=== PATIENT | female | born 1950 | race Caucasian/White ===

== ENCOUNTER → 2016-11-20 | Outpatient (CLI) | payer MEDICARE, OTHER ==
--- NOTE | 2016-11-21 08:16 | XR ---
Right shoulder HISTORY: Right shoulder pain 3 views of the right shoulder No comparisons There is right acromioclavicular joint arthropathy. Bone mineralization mildly reduced, joint spaces and alignment are maintained. Right lung apex as visualized is normal. IMPRESSION: Acromioclavicular joint arthropathy.
== END | disposition home or self-care (01) ==
LOC: RADXRYALE 16:47
PROVIDERS: ATTEND Family Medicine
DX: M12.811 Other specific arthropathies, not elsewhere classified, right shoulder (principal)

== ENCOUNTER → 2017-05-18 | Outpatient (CLI) | payer MEDICARE, OTHER ==
--- NOTE | 2017-05-19 07:31 | MM ---
Reason for exam: screening (asymptomatic). Last mammogram was performed 1 year and 8 months ago. History: Patient is postmenopausal and has history of endometrial cancer at age 29. Family history of breast cancer in mother at age 70. Benign right mammotome panel of the right breast, April 26, 2010. Took hormonal contraceptives for 4 years. Physical Findings: A clinical breast exam by your physician is recommended on an annual basis and results should be correlated with mammographic findings. MG Screening Mammo w CAD Bilateral CC and MLO view(s) were taken. Prior study comparison: October 02, 2015, bilateral MG screening mammo w CAD. November 11, 2012, bilateral digital screening mammo w/CAD. There are scattered fibroglandular densities. Finding: There are few typically benign round, diffuse/scattered calcifications in both breasts. Previous mammotome biopsy in the right breast. There is a chronic nodularity in the right axilla. There is no discrete abnormality. ASSESSMENT: Benign, BI-RAD 2 RECOMMENDATION: Routine screening mammogram of both breasts in 1 year.
== END | disposition home or self-care (01) ==
LOC: RADMAMWWP 10:35
PROVIDERS: ATTEND Family Medicine
DX: Z12.31 Encounter for screening mammogram for malignant neoplasm of breast (principal)

== ENCOUNTER → 2017-06-09 | Outpatient (CLI) | payer MEDICARE, OTHER ==
--- NOTE | 2017-06-09 15:23 | XR ---
Right elbow HISTORY: Trauma and pain 3 views of the right elbow correlated to right forearm 2 diffuse are similar projection There is a pathologic joint effusion present. Alignment and bone mineralization are maintained. Joint spaces are normal. No fracture or dislocation is evident. IMPRESSION: Joint effusion may be indicative of occult fracture, alternate imaging may be of increase d sensitivity, follow-up as indicated.
--- NOTE | 2017-06-09 15:27 | XR ---
Right forearm HISTORY: Trauma and pain 2 views of the right forearm correlated to the elbow same date Bone mineralization, joint spaces and alignment are maintained. Elbow joint effusion suspected. IMPRESSION: No acute fracture or dislocation is evident. Joint effusion in the elbow may be indicativ e of occult fracture, follow-up as indicated.
== END | disposition home or self-care (01) ==
LOC: RADXRYALE 13:42
PROVIDERS: ATTEND Physician Assistant Medical
DX: M25.421 Effusion, right elbow (principal); M79.631 Pain in right forearm

== ENCOUNTER 2018-01-12 08:42 | Day surgery (SDC) | payer MEDICARE, OTHER ==
[2018-01-07 14:45] VITALS: BMI 28.7
[~2018-01-12 08:42] MED LIST: LACTATED RINGERS 1,000 ML IV SCH
[2018-01-12] MEDS: CYCLOPENTOLATE 1% OPHTH SOLN 2 ML BTL OP ONE ×3 (09:45→10:03)
[2018-01-12] MEDS: FLURBIPROFEN 0.03% OPHTH DROPS 2.5 ML BTL OP ONE ×3 (09:48→10:06)
[2018-01-12] MEDS: PHENYLEPHRINE 10% OPHTH DROPS 5 ML BTL OP ONE ×3 (09:51→10:08)
[2018-01-12 10:02] VITALS: RESP 16; TEMP 98.9
[2018-01-12 10:06] LABS: Glucose,Whole Blood 97 mg/dL (75-99)
[2018-01-12] MEDS ORDERED: PROPOFOL 10 MG/ML 20 ML VIAL IV ONE (10:18)
[2018-01-12] MEDS ORDERED: EPINEPHrine (PF) 0.5 ML in BALANCED SALT IRRIG SOLN COMB2 500 ML IRRIGATION ONE (10:23)
[2018-01-12] MEDS ORDERED: BALANCED SALT IRRIG SOLN COMB2 15 ML IRRIG.SOLN INTRAOCULA ONE (10:26)
[2018-01-12] MEDS ORDERED: HYALURONATE SODIUM INTRAOCULAR 1 EACH SYRINGE (10MG/ML) INTRAOCULA ONE (10:26)
--- NOTE | 2018-01-12 10:40 | P.OP ---
Date of Procedure: 01/12/18 Procedure(s) Performed: PREOPERATIVE DIAGNOSIS: Cataract, left eye. POSTOPERATIVE DIAGNOSIS: Cataract, left eye. OPERATION: Phacoemulsification cataract, left eye. DESCRIPTION OF PROCEDURE: The patient was taken to the preoperative holding area. Intravenous Propofol was given so as to bring about adequate sedation. The following mixture was given for local anesthesia: 5 mL of 2% lidocaine, 5 mL of 0.75% Marcaine, and 1 mL of Wydase. Approximately 4 mL was injected in the retrobulbar space of the surgical eye. Additional 1 mL was then directed to the temporal area of the surgical eye. This was performed to allow adequate neurological block of the facial muscles. The patient was revived and then taken into the operative room. The patient was prepped and draped in the usual sterile manner for the operative eye. A lid speculum was put into position. The conjunctiva was resected back from the limbus in the 12 o'clock position. Bleeding was controlled with electrocautery. A #69 blade was then used and a half-thickness scleral incision approximately 1-mm posterior to the limbus was made on bare sclera. This was shelved in the clear cornea using a crescent knife. Next a 15-degree blade was used to make a stab incision at the 3 o' clock position at the corneolimbal interface. Keratome blade was then used and the superior wound was extended into the anterior chamber. Viscoelastic was injected into the anterior chamber and to maintain its form. Next, a cystotome was used and a continuous anterior capsulotomy was made without difficulty. Hydrodissection using a blunt cannula and BSS was performed. Phaco probe was then employed and a groove extending from 12 to 6 o'clock in the lens was created. A Francisco wand was used through the stab incision so as to perform a divide and conquer technique. Next an irrigation aspiration probe was utilized and any residual cortex was removed from the eye. Again, viscoelastic was injected into the anterior chamber. An Trae posterior chamber lens implant was placed in the cartridge and injected into the anterior chamber without difficulty. The SinFloDesign Wind Turbineey hook was utilized to spin the lens into position and this was again performed without any difficulty. The irrigation and aspiration probe was again employed and any residual viscoelastic was removed from the eye. Then BSS was injected into the limbal stab incision and the anterior chamber re-inflated. The conjunctiva was reapproximated using electrocautery. One drop of 0.25% Timoptic was placed over the corneal along with TobraDex ophthalmic ointment. Two sterile patches and a Jo eye shield were taped into position. The patient was transported to the recovery room in stable condition. Pathology: none sent Condition: stable Disposition: same day
[2018-01-12 10:59] VITALS: BP 128/82; PULSE 63
[2018-01-12] MEDS ORDERED: BUPIVACAINE (PF) 0.75% 5 ML, HYALURONIDASE, HUMAN RECOMB 150 UNIT, LIDOCAINE 2% (PF) 10... MISCELLANE ONE ×3 (23:00)
[2018-01-12] MEDS ORDERED: TIMOLOL 0.5% OPHTH DROPS 5 ML BTL OP ONE (23:00)
[2018-01-12] MEDS ORDERED: GENTAMICIN/PREDNISOL AC OPHTH OINT 3.5GM OPHTHALMIC ONE (23:00)
== END 2018-01-12 11:28 | disposition home or self-care (01) ==
LOC: OR 08:42
PROVIDERS: ATTEND Ophthalmology
DX: E11.36 Type 2 diabetes mellitus with diabetic cataract (principal); I10 Essential (primary) hypertension; E78.5 Hyperlipidemia, unspecified; K21.9 Gastro-esophageal reflux disease without esophagitis; Z79.84 Long term (current) use of oral hypoglycemic drugs; Z79.82 Long term (current) use of aspirin; Z79.899 Other long term (current) drug therapy; Z88.6 Allergy status to analgesic agent; Z88.5 Allergy status to narcotic agent
CPT/HCPCS: 66984; V2632; J3470; J2001; J0171; J2704

== ENCOUNTER → 2018-02-23 | Day surgery (SDC) | payer MEDICARE, OTHER ==
[2018-02-16 16:16] VITALS: BMI 29.8
[~2018-02-23] MED LIST changes: +BALANCED SALT IRRIG SOLN COMB2 15 ML IRRIG.SOLN IRRIGATION ONE; +BUPIVACAINE (PF) 0.75% 5 ML, HYALURONIDASE, HUMAN RECOMB 150 UNIT, LIDOCAINE 2% (PF) 10... MISCELLANE ONE; +EPINEPHrine (PF) 0.5 ML in BALANCED SALT IRRIG SOLN COMB2 500 ML IRRIGATION ONE; +GENTAMICIN/PREDNISOL AC OPHTH OINT 3.5GM OPHTHALMIC ONE; +HYALURONATE SODIUM INTRAOCULAR 1 EACH SYRINGE (10MG/ML) INTRAOCULA ONE; +LIDOCAINE 1% 20 ML VIAL (10MG/ML) FOR IV START INTRADERMA PRN; +MIDAZOLAM 2 MG/2 ML VIAL IV PRN; +PROPOFOL 10 MG/ML 20 ML VIAL IV ONE; +TIMOLOL 0.5% OPHTH DROPS 5 ML BTL OP ONE
[2018-02-23 10:24] LABS: Glucose,Whole Blood 91 mg/dL (75-99)
[2018-02-23] MEDS: CYCLOPENTOLATE 1% OPHTH SOLN 2 ML BTL OP ONE ×3 (10:25→10:47)
[2018-02-23] MEDS: PHENYLEPHRINE 10% OPHTH DROPS 5 ML BTL OP ONE ×3 (10:29→10:51)
[2018-02-23 10:30] VITALS: TEMP 98
[2018-02-23] MEDS: FLURBIPROFEN 0.03% OPHTH DROPS 2.5 ML BTL OP ONE ×4 (10:33→10:55)
--- NOTE | 2018-02-23 11:42 | P.OP ---
Date of Procedure: 02/23/18 Procedure(s) Performed: PREOPERATIVE DIAGNOSIS: Cataract, right eye. POSTOPERATIVE DIAGNOSIS: Cataract, right eye. OPERATION: Phacoemulsification cataract, right eye. DESCRIPTION OF PROCEDURE: The patient was taken to the preoperative holding area. Intravenous Propofol was given so as to bring about adequate sedation. The following mixture was given for local anesthesia: 5 mL of 2% lidocaine, 5 mL of 0.75% Marcaine, and 1 mL of Wydase. Approximately 4 mL was injected in the retrobulbar space of the surgical eye. Additional 1 mL was then directed to the temporal area of the surgical eye. This was performed to allow adequate neurological block of the facial muscles. The patient was revived and then taken into the operative room. The patient was prepped and draped in the usual sterile manner for the operative eye. A lid speculum was put into position. The conjunctiva was resected back from the limbus in the 12 o'clock position. Bleeding was controlled with electrocautery. A #69 blade was then used and a half-thickness scleral incision approximately 1-mm posterior to the limbus was made on bare sclera. This was shelved in the clear cornea using a crescent knife. Next a 15-degree blade was used to make a stab incision at the 3 o' clock position at the corneolimbal interface. Keratome blade was then used and the superior wound was extended into the anterior chamber. Viscoelastic was injected into the anterior chamber and to maintain its form. Next, a cystotome was used and a continuous anterior capsulotomy was made without difficulty. Hydrodissection using a blunt cannula and BSS was performed. Phaco probe was then employed and a groove extending from 12 to 6 o'clock in the lens was created. A Francisco wand was used through the stab incision so as to perform a divide and conquer technique. Next an irrigation aspiration probe was utilized and any residual cortex was removed from the eye. Again, viscoelastic was injected into the anterior chamber. An Trae posterior chamber lens implant was placed in the cartridge and injected into the anterior chamber without difficulty. The SinCalmSeaey hook was utilized to spin the lens into position and this was again performed without any difficulty. The irrigation and aspiration probe was again employed and any residual viscoelastic was removed from the eye. Then BSS was injected into the limbal stab incision and the anterior chamber re-inflated. The conjunctiva was reapproximated using electrocautery. One drop of 0.25% Timoptic was placed over the corneal along with TobraDex ophthalmic ointment. Two sterile patches and a Jo eye shield were taped into position. The patient was transported to the recovery room in stable condition. Pathology: none sent Condition: stable Disposition: same day
[2018-02-23 11:45] VITALS: RESP 16
[2018-02-23 11:57] VITALS: BP 147/85; PULSE 71
== END | disposition home or self-care (01) ==
LOC: OR 09:58
PROVIDERS: ATTEND Ophthalmology
DX: H25.11 Age-related nuclear cataract, right eye (principal); I10 Essential (primary) hypertension; E11.9 Type 2 diabetes mellitus without complications; N19 Unspecified kidney failure; K21.9 Gastro-esophageal reflux disease without esophagitis; Z79.84 Long term (current) use of oral hypoglycemic drugs; Z79.82 Long term (current) use of aspirin; Z79.899 Other long term (current) drug therapy; Z91.09 Other allergy status, other than to drugs and biological substances; Z88.5 Allergy status to narcotic agent; Z86.73 Personal history of transient ischemic attack (TIA), and cerebral infarction without residual deficits
CPT/HCPCS: 66984; V2632; J3470; J2001; J0171; J2704

== ENCOUNTER → 2018-07-07 | Outpatient (CLI) | payer MEDICARE, OTHER ==
--- NOTE | 2018-07-08 08:55 | MM ---
Reason for exam: screening (asymptomatic). Last mammogram was performed 1 year and 2 months ago. History: Patient is postmenopausal and has history of endometrial cancer at age 29. Family history of breast cancer in mother at age 70. Benign right mammotome panel of the right breast, April 26, 2010. Took hormonal contraceptives for 4 years. Physical Findings: A clinical breast exam by your physician is recommended on an annual basis and results should be correlated with mammographic findings. MG Screening Mammo w CAD Bilateral CC and MLO view(s) were taken. Prior study comparison: May 18, 2017, bilateral MG screening mammo w CAD. October 02, 2015, bilateral MG screening mammo w CAD. There are scattered fibroglandular densities. There is no discrete abnormality. No significant changes when compared with prior studies. ASSESSMENT: Negative, BI-RAD 1 RECOMMENDATION: Routine screening mammogram of both breasts in 1 year.
== END | disposition home or self-care (01) ==
LOC: RADMAMWWP 09:58
PROVIDERS: ATTEND Family Medicine
DX: Z12.31 Encounter for screening mammogram for malignant neoplasm of breast (principal)
CPT/HCPCS: 77067

== ENCOUNTER → 2018-07-30 | Outpatient (CLI) | payer MEDICARE, OTHER ==
--- NOTE | 2018-07-30 16:04 | XR ---
Fourth digit left hand HISTORY: Trauma and pain 2 views of the fourth digit of the left hand are submitted. No comparisons There is an intra-articular fracture involving the dorsal aspect of the distal interphalangeal joint with a small displaced fracture fragment. No dislocation. There is associated soft tissue swelling. IMPRESSION: Fracture at the distal interphalangeal joint as described.
== END | disposition home or self-care (01) ==
LOC: RADXRYALE 15:12
PROVIDERS: ATTEND Physician Assistant Medical
DX: S62.639A Displaced fracture of distal phalanx of unspecified finger, initial encounter for closed fracture (principal)

== ENCOUNTER → 2018-08-13 | Outpatient (CLI) | payer MEDICARE, OTHER ==
--- NOTE | 2018-08-13 14:21 | XR ---
Fourth digit left hand HISTORY: Trauma and pain 2 views of the fourth digit of the left hand correlated prior exam 07/30/2018 There is no interval change. No fracture or healing is evident. The patient's dorsal intra-articular fracture at the distal interphalangeal joint is again noted, there is persistent displacement of the fracture fragment. IMPRESSION: Consider orthopedic consult. Fracture healing is not evident.
== END | disposition home or self-care (01) ==
LOC: RADXRYALE 11:20
PROVIDERS: ATTEND Physician Assistant Medical
DX: S67.195D Crushing injury of left ring finger, subsequent encounter (principal)

== ENCOUNTER 2019-09-27 06:46 | Day surgery (SDC) | payer MEDICARE, OTHER ==
[2019-09-22 14:38] VITALS: BMI 26.6
[~2019-09-27 06:46] MED LIST changes: -BALANCED SALT IRRIG SOLN COMB2 15 ML IRRIG.SOLN IRRIGATION ONE; -BUPIVACAINE (PF) 0.75% 5 ML, HYALURONIDASE, HUMAN RECOMB 150 UNIT, LIDOCAINE 2% (PF) 10... MISCELLANE ONE; -EPINEPHrine (PF) 0.5 ML in BALANCED SALT IRRIG SOLN COMB2 500 ML IRRIGATION ONE; -GENTAMICIN/PREDNISOL AC OPHTH OINT 3.5GM OPHTHALMIC ONE; -HYALURONATE SODIUM INTRAOCULAR 1 EACH SYRINGE (10MG/ML) INTRAOCULA ONE; -LIDOCAINE 1% 20 ML VIAL (10MG/ML) FOR IV START INTRADERMA PRN; -MIDAZOLAM 2 MG/2 ML VIAL IV PRN; -PROPOFOL 10 MG/ML 20 ML VIAL IV ONE; -TIMOLOL 0.5% OPHTH DROPS 5 ML BTL OP ONE
[2019-09-27 07:18] VITALS: TEMP 98.2
[2019-09-27 07:31] LABS: Glucose,Whole Blood 110 mg/dL (75-99)
[2019-09-27] MEDS ORDERED: PROPOFOL 10 MG/ML 20 ML VIAL IV ONE (07:32)
[2019-09-27] MEDS ORDERED: LIDOCAINE 1% INJ 10MG/ML (20 ML MDV) ONE (07:32)
--- NOTE | 2019-09-27 08:16 | P.PCN ---
Date of Procedure: 09/27/19 Description of Procedure: BRIEF HISTORY: Patient is a 69-year-old, pleasant, female who presented for outpatient esophagogastroduodenoscopy for evaluation of dysphagia. Dysphagia is mainly pill-induced. Patient also has a history of reflux disease on omeprazole therapy. PROCEDURE PERFORMED: Esophagogastroduodenoscopy with biopsy and cmvrobj-qce-plmsg balloon dilation of the esophagus. PREOPERATIVE DIAGNOSIS: GERD, esophageal dysphagia. ESTIMATED BLOOD LOSS: Minimal. IV sedation per anesthesia. PROCEDURE: After informed consent was obtained, the patient was brought into the endoscopy unit. IV sedation was administered by Anesthesia under continuous monitoring. Initially the Olympus GIF-190 video endoscope was inserted into the mouth. Esophagus intubated without any difficulty. It was gradually advanced into the stomach and duodenum and carefully examined. The bulb and the second part of the duodenum appeared normal, with biopsies taken to rule out celiac sprue. The scope at this time was withdrawn to the stomach, adequately insufflated with air, and upon careful examination, mucosa of the antrum, body, cardia and the fundus appeared normal except for some mild scattered erythema in the antrum and body suggestive of mild gastritis with biopsies taken. Benign-appearing gastric polyps likely representing fundic gland polyps were biopsied. The scope was then withdrawn into the esophagus. The GE junction was located at 39 cm from the incisors with 2 patent distal esophageal Schatzki's rings which were sequentially dilated with a ilxqprm-mzr-bfuja balloon dilator to 12 mm13.5 mm15 mm. The esophagus otherwise appeared normal with mid esophageal biopsies taken to rule out EOE. There were no erosions or ulcerations seen and the patient tolerated the procedure well. IMPRESSION: 1. Mild gastritis antrum and body, biopsied. 2. Distal esophageal Schatzki ring was sequentially dilated with babawcd-ksv-ekeyq balloon dilator. 3. Gastric polyps biopsied. 4. Biopsies of the duodenum and midesophagus. RECOMMENDATIONS: The findings of this examination were discussed with the patient and her family. Okay to resume diet. Continue omeprazole therapy. Await pathology from biopsies.
[2019-09-27 08:17] VITALS: RESP 16
[2019-09-27 08:37] VITALS: BP 162/92; PULSE 66
== END 2019-09-27 09:02 | disposition home or self-care (01) ==
LOC: ORWHC2ENDO 06:46
PROVIDERS: ATTEND Internal Medicine
DX: K22.2 Esophageal obstruction (principal); K21.9 Gastro-esophageal reflux disease without esophagitis; K31.7 Polyp of stomach and duodenum; K29.50 Unspecified chronic gastritis without bleeding; K44.9 Diaphragmatic hernia without obstruction or gangrene; N28.9 Disorder of kidney and ureter, unspecified; I10 Essential (primary) hypertension; E78.5 Hyperlipidemia, unspecified; E11.9 Type 2 diabetes mellitus without complications; Z87.891 Personal history of nicotine dependence; Z88.5 Allergy status to narcotic agent; Z79.84 Long term (current) use of oral hypoglycemic drugs; Z79.82 Long term (current) use of aspirin; Z79.899 Other long term (current) drug therapy; Z98.890 Other specified postprocedural states; Z90.710 Acquired absence of both cervix and uterus; Z85.42 Personal history of malignant neoplasm of other parts of uterus; Z88.6 Allergy status to analgesic agent
CPT/HCPCS: 88305; 43239; 43249; J2001; J2704; C1726

== ENCOUNTER → 2019-10-31 | Outpatient (CLI) | payer MEDICARE, OTHER ==
--- NOTE | 2019-10-31 16:41 | BD ---
EXAMINATION TYPE: Axial Bone Density DATE OF EXAM: 10/31/2019 COMPARISON: 10/02/2015 CLINICAL HISTORY: 69-year-old female postmenopausal screening Height: 66 IN Weight: 174 LBS FRAX RISK QUESTIONS: History of Fracture in Adulthood: YES RT ELBOW FX AGE 67 Secondary Osteoporosis: 3. Menopause before 45: YES TOTAL HYST AGE 29 RISK FACTORS HISTORY OF: Active: YES Postmenopausal woman: TOTAL HYST AGE 29 Take estrogen and/or progesterone medications: NOT NOW How long: TOOK CONTROL FOR 4 YEARS Lost more than 2 inches in height since high school: MEDICATIONS: Additional Medications: VIT D, METFORMIN, ATENOLOL, OMEPRAZOLE, ATORVASTATIN, ASPIRIN, MAGNESIUM OXID E, MULTIDOPHILUS, MULTI C=VIT, FISH OIL, FLAXSEED OIL EXAM MEASUREMENTS: Bone mineral densitometry was performed using the [employer] System. Bone mineral density as measured about the Lumbar spine is: ----- L1-L4(G/cm2): 1.063 T Score Values are as follows: ----- L2: -1.6 ----- L3: -1.0 ----- L4: -0.3 ----- L1-L4: -1.0 Bone mineral density has: Increased 3.2% since study of: 10/02/2015 Bone mineral density about the R hip (g/cm2): 0.927 Bone mineral density about the L hip (g/cm2): 0.943 T Score values are as follows: -----R Neck: -0.8 -----L Neck: -0.7 -----R Total: -0.3 -----L Total: -0.3 Bone mineral density has: Decreased -4.1% since study of: 10/02/2015 IMPRESSION: Normal (Values between +1 and -1 indicate normal bone mass). However, note that measurements are bor dering osteopenia within the lumbar spine. Consider repeating this study in 5 years or sooner if there is some new clinical indication. NOTE: T-SCORE=SD OF THE YOUNG ADULT MEAN.
--- NOTE | 2019-11-04 12:37 | MM ---
Reason for exam: screening (asymptomatic). Last mammogram was performed 1 year and 4 months ago. History: Patient is postmenopausal and has history of endometrial cancer at age 29. Family history of breast cancer in mother at age 70. Benign right mammotome panel of the right breast, April 26, 2010. Took hormonal contraceptives for 4 years. Physical Findings: A clinical breast exam by your physician is recommended on an annual basis and results should be correlated with mammographic findings. MG Screening Mammo w CAD Bilateral CC and MLO view(s) were taken. Prior study comparison: July 07, 2018, bilateral MG screening mammo w CAD. May 18, 2017, bilateral MG screening mammo w CAD. There are scattered fibroglandular densities. There are benign appearing round calcifications in the right breast. Previous mammotome biopsy in the right breast. There is no discrete abnormality. ASSESSMENT: Benign, BI-RAD 2 RECOMMENDATION: Routine screening mammogram of both breasts in 1 year.
== END | disposition home or self-care (01) ==
LOC: RADMAMWWP 09:02
PROVIDERS: ATTEND Family Medicine
DX: Z12.31 Encounter for screening mammogram for malignant neoplasm of breast (principal); M85.88 Other specified disorders of bone density and structure, other site
CPT/HCPCS: 77067; 77080

== ENCOUNTER → 2021-05-03 | Outpatient (CLI) | payer MEDICARE, OTHER ==
--- NOTE | 2021-05-07 09:35 | MM ---
Reason for exam: screening (asymptomatic). Last mammogram was performed 1 year and 6 months ago. History: Patient is postmenopausal and has history of endometrial cancer at age 29. Family history of breast cancer in mother at age 70. Benign right mammotome panel of the right breast, April 26, 2010. Took hormonal contraceptives for 4 years. Physical Findings: A clinical breast exam by your physician is recommended on an annual basis and results should be correlated with mammographic findings. MG Screening Mammo w CAD Bilateral CC and MLO view(s) were taken. Prior study comparison: October 31, 2019, bilateral MG screening mammo w CAD. July 07, 2018, bilateral MG screening mammo w CAD. There are scattered fibroglandular densities. ASSESSMENT: Benign, BI-RAD 2 RECOMMENDATION: Routine screening mammogram of both breasts in 1 year.
== END | disposition home or self-care (01) ==
LOC: RADMAMWWP 11:08
PROVIDERS: ATTEND Family Medicine
DX: Z12.31 Encounter for screening mammogram for malignant neoplasm of breast (principal); Z78.0 Asymptomatic menopausal state; Z80.3 Family history of malignant neoplasm of breast
CPT/HCPCS: 77067

== ENCOUNTER → 2023-12-15 | Outpatient (CLI) | payer MEDICARE, OTHER ==
--- NOTE | 2023-12-15 12:35 | XR ---
EXAM TYPE: LUMBAR SPINE X RAY SERIES COMPARISON: NONE HISTORY: Pain TECHNIQUE: 4 views are submitted. FINDINGS: Alignment is anatomic. The pedicles are intact. The transverse processes are intact. There is a gr leodan 2 anterolisthesis L5-S1 suspected bilateral spondylolysis. There is multilevel facet arthropathy involving the lower lumbar spine. Suspect foraminal protrusion at L4-5 and particularly at L5-S1. Sev ere degenerative disc disease L5-S1. There is mild degenerative disc disease at levels L2-3, L3-4 and L4-5. Mild generalized demineralization. Vascular calcifications noted. Mild generalized osteopenia. Mild SI joint arthropathy. Sclerotic density overlying the right iliac bone likely related to bowel content. IMPRESSION: 1. There is a grade 2 spondylolisthesis L5-S1 with severe degenerative disc disease and suspected sev ere foraminal encroachment. Recommend follow-up MRI.
== END | disposition home or self-care (01) ==
LOC: RADXRYALE 11:54
PROVIDERS: ATTEND Physician Assistant Medical
DX: M51.36 Other intervertebral disc degeneration, lumbar region (principal); M54.41 Lumbago with sciatica, right side
CPT/HCPCS: 72110

== ENCOUNTER → 2023-12-23 | Outpatient (CLI) | payer MEDICARE, OTHER ==
--- NOTE | 2023-12-26 12:25 | MR ---
EXAMINATION TYPE: MR lumbar spine wo con DATE OF EXAM: 12/23/2023 3:29 PM CLINICAL INDICATION:Female, 73 years old with history of M51.36 OTHER INTERVERTEBRAL DISC DEGENERATIO N, LUM; PHH, Low back pain that radiates down right leg COMPARISON: 12/15/2023 TECHNIQUE: Multi planar, multi sequence imaging was performed utilizing: T1-weighted, T2-weighted, a nd turbo inversion recovery imaging of the lumbar spine. IV Contrast: cc . (None if empty) FINDINGS: Alignment: The lumbar vertebral bodies have preserved heights with grade 2 anterolisthesis of L5 on S 1. Cord: The conus medullaris and the distal spinal cord appear unremarkable with regards to their signa l intensity and morphology. Bones/Discs: Degeneration changes throughout the spine worse at L5-S1 with disc space narrowing, Kurt c end plate changes and osteophyte formation. T12-L1: No evidence of significant spinal canal stenosis or neural foraminal stenosis. L1-L2: No evidence of significant spinal canal stenosis or neural foraminal stenosis. L2-L3: No evidence of significant spinal canal stenosis or neural foraminal stenosis. L3-L4: Disc bulge and facet joint arthropathy result in mild spinal canal and moderate bilateral neur al foraminal stenosis. L4-L5: Disc bulge and facet joint arthropathy result in mild spinal canal and moderate bilateral neur al foraminal stenosis. L5-S1: Disc uncovering from grade 2 anterolisthesis and facet joint arthropathy with mild spinal oly l stenosis and moderate to severe bilateral neural foraminal stenosis. No significant spinal canal or neural foraminal stenosis in the remainder of the visualized levels. Other findings: Perineural cysts at the level of S2 measuring up to 19 mm on the on the right and IMPRESSION: 1. No definitive evidence of disc herniation or significant spinal canal stenosis. 2. Grade 2 anterolisthesis with moderate to severe bilateral neural foraminal stenosis. Spinal canal is mildly narrowed at this level.
== END | disposition home or self-care (01) ==
LOC: RADMRIMAIN 14:30
PROVIDERS: ATTEND Family Medicine
DX: M99.73 Connective tissue and disc stenosis of intervertebral foramina of lumbar region (principal); M48.061 Spinal stenosis, lumbar region without neurogenic claudication; M51.36 Other intervertebral disc degeneration, lumbar region; M43.16 Spondylolisthesis, lumbar region
CPT/HCPCS: 72148

== ENCOUNTER → 2024-04-19 | Outpatient (CLI) | payer MEDICARE, OTHER ==
--- NOTE | 2024-04-20 11:39 | BD ---
EXAMINATION TYPE: Axial Bone Density DATE OF EXAM: 04/19/2024 CLINICAL HISTORY: 74 years old Female. ICD-10 CODE: M85.80 OTHER DISORDERS OF BONE Height: 5 ft 6 in Weight: 154 FRAX RISK QUESTIONS: Alcohol (3 or more units per day): no Family History (Parent hip fracture): no Glucocorticoids (More than 3mos): no (Ex: prednisone, prednisolone, methylprednisolone, dexamethasone, and hydrocortisone). History of Fracture in Adulthood: yes Secondary Osteoporosis: 1. Type 1 Diabetes: no 2. Hyperthyroidism: no 3. Menopause before 45: yes 4. Malnutrition: no 5. Chronic liver disease: no Rheumatoid Arthritis: no Current Tobacco Use: no RISK FACTORS HISTORY OF: Surgery to Spine/Hip(right/left)/Wrist (right/left): no MEDICATIONS: Thyroid Medications: none Osteoporosis Medications: none EXAM MEASUREMENTS: Bone mineral densitometry was performed using the [employer] System. Bone mineral density as measured about the Lumbar spine is: ----- L1-L4(G/cm2): 1.086 T Score Values are as follows: ----- L1: -1.3 ----- L2: -1.5 ----- L3: -1.0 ----- L4: 0.3 ----- L1-L4: -0.8 Z Score Values are as follows: ----- L1: 0.3 ----- L2: 0.1 ----- L3: 0.6 ----- L4: 1.9 ----- L1-L4: 0.8 Bone mineral density has: increased 2.2 % since study of: 2019 Bone mineral density about the R hip (g/cm2): 0.942 Bone mineral density about the L hip (g/cm2): 0.907 T Score values are as follows: -----R Neck: -0.7 -----L Neck: -0.9 -----R Total: -0.6 -----L Total: -0.8 Z Score values are as follows: -----R Neck: 1.2 -----L Neck: 0.9 -----R Total: 1.0 -----L Total: 0.9 Bone mineral density has: decreased -5.2 % since study of: 2019 FRAX%s: The graph provided illustrates a 15.4 % chance for a major osteoporotic fx and a 2.2 % chance for the hips probability for fx in 10 years time. IMPRESSION: Normal (Values between +1 and -1 indicate normal bone mass). Consider repeating this study in 5 year s or sooner if there is some new clinical indication. NOTE: T-SCORE=SD OF THE YOUNG ADULT MEAN.
--- NOTE | 2024-04-21 09:16 | MM ---
Reason for Exam: Screening (asymptomatic). Last mammogram was performed 3 year(s) and 0 month(s) ago. Patient History: Menarche at age 11. First Full-Term at age 18. Hysterectomy at age 29. Postmenopausal. Endometrial cancer, age 29. Patient used Hormonal Contraceptives for 4 years. 04/26/2010, Benign Core Biopsy on the right side. Mother had breast cancer, age 70. Risk Values: Venus 5 year model risk: 4.0%. NCI Lifetime model risk: 8.0%. Prior Study Comparison: 07/07/2018 Bilateral Screening Mammogram, [facility]. 10/31/2019 Bilateral Screening Mammogram, [facility]. 05/03/2021 Bilateral Screening Mammogram, [facility]. Tissue Density: The breasts are heterogeneously dense, which may obscure small masses. Findings: Analyzed By CAD. There is no suspicious group of microcalcifications or new suspicious mass in either breast. Overall Assessment: Benign, BI-RAD 2 Management: Screening Mammogram of both breasts in 1 year. . Patient should continue monthly self-breast exams. A clinical breast exam by your physician is recommended on an annual basis. This exam should not preclude additional follow-up of suspicious palpable abnormalities. Note on Venus scores and lifetime risk: 1. A Venus score greater than 3% is considered moderate risk. If this is the case, consider specialist referral to assess eligibility for a risk reducing agent. 2. If overall lifetime risk for the development of breast cancer is 20% or higher, the patient may qualify for future screening with alternating mammogram and breast MRI. Electronically signed and approved by: Luciano Hernandez M.D. Radiologis
== END | disposition home or self-care (01) ==
LOC: RADBDWWP 13:43
PROVIDERS: ATTEND Family Medicine
DX: Z12.31 Encounter for screening mammogram for malignant neoplasm of breast (principal); M85.89 Other specified disorders of bone density and structure, multiple sites; Z80.3 Family history of malignant neoplasm of breast; Z78.0 Asymptomatic menopausal state
CPT/HCPCS: 77067; 77080